=== PATIENT | male | born 1995 ===

== ENCOUNTER 2020-03-29 06:37 | Day surgery (SDC) | payer OTHER ==
[~2020-03-29 06:37] MED LIST: ADDERALL 10 MG10 MG PO; LEXAPRO5 MG PO
== END 2020-03-29 17:10 | disposition home or self-care (01) ==
LOC: CIR.AMB 06:37
PROVIDERS: ATTEND Orthopaedic Surgery Hand Surgery
DX: S92.352A Displaced fracture of fifth metatarsal bone, left foot, initial encounter for closed fracture (principal); Z20.828 Contact with and (suspected) exposure to other viral communicable diseases